=== PATIENT | male | born 1960 | race American Indian/Alaskan Native ===

== ENCOUNTER 2018-11-25 07:04 | Emergency (ER) | payer OTHER ==
[2018-11-25 07:11] VITALS: BP 124/81
--- NOTE | 2018-11-25 09:09 | Emergency Department Report ---
ED General Adult HPI - General Chief complaint: Rectal Pain Stated complaint: RECTAL PAIN Time Seen by Provider: 11/25/18 08:27 Source: patient Mode of arrival: Ambulatory Limitations: No Limitations - History of Present Illness Initial comments: 58 yo M with hx of hemorrhoids presents to the ED with worsening rectal pain. Pt states over the last few days, hemorrhoids have become more painful. 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 States he has tried epsom salt sitz baths, suppositories and cream without relief. Denies rectal bleeding. -: days(s) (4) Radiation: non-radiation Quality: sharp Consistency: constant Improves with: other (laying down) Worsens with: other (sitting) Associated Symptoms: denies other symptoms Treatments Prior to Arrival: other (OTC therapies) - Related Data Previous Rx's Medication Instructions Recorded Last Taken Type Butalb/Acetaminophen/Caffeine 1 each PO Q6H PRN #14 capsule 02/08/14 Unknown Rx [Fioricet 50-300-40 mg Capsule] Ibuprofen [Motrin] 800 mg PO Q8H PRN #14 tablet 02/08/14 Unknown Rx Docusate Sodium [Colace CAP] 100 mg PO BID #30 capsule 11/25/18 Unknown Rx Pramoxine 1% [Proctofoam] 1 applic PA TID #15 gm 11/25/18 Unknown Rx Allergies Allergy/AdvReac Type Severity Reaction Status Date / Time No Known Allergies Allergy Verified 11/25/18 07:09 ED Review of Systems ROS: Stated complaint: RECTAL PAIN Other details as noted in HPI Comment: All other systems reviewed and negative Constitutional: denies: chills, fever Gastrointestinal: other (reports rectal pain). denies: constipation, hematochez ia ED Past Medical Hx - Past Medical History Previous Medical History?: Yes Hx Asthma: Yes - Surgical History Past Surgical History?: Yes Additional Surgical History: left knee - Social History Smoking Status: Current Every Day Smoker Substance Use Type: Alcohol, Marijuana - Medications Home Medications: Home Medications Medication Instructions Recorded Confirmed Last Taken Type Butalb/Acetaminophen/Caffeine 1 each PO Q6H PRN #14 capsule 02/08/14 Unknown Rx [Fioricet 50-300-40 mg Capsule] Ibuprofen [Motrin] 800 mg PO Q8H PRN #14 tablet 02/08/14 Unknown Rx Docusate Sodium [Colace CAP] 100 mg PO BID #30 capsule 11/25/18 Unknown Rx Pramoxine 1% [Proctofoam] 1 applic PA TID #15 gm 11/25/18 Unknown Rx ED Physical Exam - General Limitations: No Limitations General appearance: alert, in no apparent distress - Head Head exam: Present: atraumatic, normocephalic - Eye Eye exam: Present: normal appearance, PERRL, EOMI - ENT ENT exam: Present: mucous membranes moist - Neck Neck exam: Present: normal inspection - Respiratory Respiratory exam: Present: normal lung sounds bilaterally. Absent: respiratory distress - Cardiovascular Cardiovascular Exam: Present: regular rate, normal rhythm - GI/Abdominal GI/Abdominal exam: Absent: distended - Rectal Rectal exam: Present: hemorrhoids (no bleeding present, not thrombosed) - Extremities Exam Extremities exam: Present: normal inspection - Neurological Exam Neurological exam: Present: alert, oriented X3 - Psychiatric Psychiatric exam: Present: normal affect, normal mood - Skin Skin exam: Present: warm, dry, intact, normal color. Absent: rash ED Course Vital Signs 11/25/18 07:10 Temperature 98.3 F Pulse Rate 86 Respiratory 18 Rate Blood Pressure 124/81 O2 Sat by Pulse 99 Oximetry Critical care attestation.: If time is entered above; I have spent that time in minutes in the direct care of this critically ill patient, excluding procedure time. ED Disposition Clinical Impression: Hemorrhoids Disposition: DC-01 TO HOME OR SELFCARE Is pt being admited?: No Condition: Stable Instructions: Hemorrhoids (ED) Prescriptions: Docusate Sodium [Colace CAP] 100 mg PO BID #30 capsule Pramoxine 1% [Proctofoam] 1 applic PA TID #15 gm Referrals: PABLO CALDWELL MD [Primary Care Provider] - 3-5 Days JOCELYN CEDENO MD [Staff Physician] - 3-5 Days DAYA SHANNON MD [Staff Physician] - 3-5 Days Time of Disposition: 09:27
== END 2018-11-25 09:34 | disposition home or self-care (01) ==
LOC: ED 07:04
DX: K64.9 Unspecified hemorrhoids (principal); J45.909 Unspecified asthma, uncomplicated; F17.200 Nicotine dependence, unspecified, uncomplicated; F12.10 Cannabis abuse, uncomplicated
CPT/HCPCS: 99282